=== PATIENT | female | born 1975 | race Hispanic/Latino ===

== ENCOUNTER 2016-05-27 14:40 | Emergency (ER) | payer OTHER ==
[2016-05-27 14:53] VITALS: BMI 19.2
[2016-05-27] MEDS ORDERED: Sodium Chloride 0.9% 1,000 ML IV ONE (15:02)
--- NOTE | 2016-05-27 15:03 | C.PDOC ---
History Of Present Illness Patient is a 40 y/o female that presents to the ED for evaluation of headache associated with nausea, and photophobia since last night. Patient states that her symptoms are similar to her typical migraine headache. Patient states her migraine is usually relieved by Motrin 400mg PO but is unable to tolerate PO today. Otherwise, patient denies any dizziness, weakness, numbness, fever, chills, or any other associated symptoms at this time. Time Seen by Provider: 05/27/16 14:51 Chief Complaint (Nursing): Abdominal Pain History Per: Patient History/Exam Limitations: no limitations Onset/Duration Of Symptoms: Days (1) Current Symptoms Are (Timing): Still Present Quality Of Discomfort: Aching Associated Symptoms: Nausea. denies: Fever, Chills Recent travel outside of the [place]: No Additional History Per: Patient Past Medical History Reviewed: Historical Data, Nursing Documentation, Vital Signs Vital Signs: Last Vital Signs Temp 98.1 F 05/27/16 16:51 Pulse 88 05/27/16 16:51 Resp 20 05/27/16 16:51 BP 106/67 05/27/16 16:51 Pulse Ox 98 05/27/16 16:53 Surgical History: Tonsillectomy, - [facility] Procedures D & C POST DELIVERY (07/10/14) LOW CERVICAL (08/15/12) Family History: States: Unknown Family Hx - Social History Hx Alcohol Use: No Hx Substance Use: No - Immunization History Hx Tetanus Toxoid Vaccination: No Hx Influenza Vaccination: Yes Hx Pneumococcal Vaccination: No Review Of Systems Except As Marked, All Systems Reviewed And Found Negative. Constitutional: Negative for: Fever, Chills Eyes: Positive for: Other (photophobia) Cardiovascular: Negative for: Chest Pain, Palpitations Respiratory: Negative for: Cough, Shortness of Breath Gastrointestinal: Positive for: Nausea. Negative for: Abdominal Pain Musculoskeletal: Negative for: Neck Pain, Back Pain Neurological: Positive for: Headache. Negative for: Weakness, Numbness, Dizziness Physical Exam - Physical Exam Appears: Non-toxic, No Acute Distress Skin: Normal Color, Warm, Dry Head: Atraumatic, Normacephalic Eye(s): bilateral: Other (miosis pupils) Neck: Normal ROM, Supple Chest: Symmetrical Cardiovascular: Rhythm Regular Respiratory: Normal Breath Sounds, No Rales, No Rhonchi, No Wheezing Extremity: Normal ROM, No Deformity Extremity: Bilateral: Atraumatic Neurological/Psych: Oriented x3, Normal Speech, Normal Cognition, Other (neuro intact) ED Course And Treatment - Laboratory Results Result Diagrams: 05/27/16 15:18 05/27/16 15:18 Lab Interpretation: Normal (UDS neg, UA neg.) Urine POC: Negative O2 Sat by Pulse Oximetry: 98 (on RA) Pulse Ox Interpretation: Normal Progress Note: Labs, EKG ordered and reviewed. Patient was treated with IV fluids, Toradol IVP, and Zofran inj. in the ER. On reassessment, patient reports improvement of headache. No neurological deficits. Reevaluation Time: 16:36 Reassessment Condition: Improved Medical Decision Making Medical Decision Making: typical headache, ? migraine type. Disposition Doctor Will See Patient In The: Office Counseled Patient/Family Regarding: Studies Performed, Diagnosis - Disposition Referrals: Abbey Hoffman MD [Staff Provider] - Disposition: HOME/ ROUTINE Disposition Time: 16:36 Condition: GOOD Prescriptions: Ondansetron ODT [Zofran ODT] 1 odt PO BID PRN #6 odt PRN Reason: Nausea/Vomiting Instructions: Acute Headache (ED) - Clinical Impression Clinical Impression: Headache - Scribe Statement The provider has reviewed the documentation as recorded by the Raffy Collins Provider Attestation: All medical record entries made by the Madiibjeff were at my direction and personally dictated by me. I have reviewed the chart and agree that the record accurately reflects my personal performance of the history, physical exam, medical decision making, and the department course for this patient. I have also personally directed, reviewed, and agree with the discharge instructions and disposition.
[2016-05-27 15:29] LABS: BASO % 0.6 % (0.0-2.0); EOS % 0.2 % (0.0-4.0); HEMATOCRIT 38.7 % (34.0-47.0); LYMPH # 0.5 K/uL (1.0-4.3); LYMPH % 9.8 % (20.0-40.0); MEAN CORPUSCULAR HEMOGLOBIN 32.2 pg (27.0-31.0); MEAN CORPUSCULAR HGB CONC 34.6 g/dL (33.0-37.0); MONO # 0.2 K/uL (0.0-0.8); MONO % 2.8 % (0.0-10.0); PLATELET COUNT 218 K/uL (130-400); RED CELL DISTRIBUTION WIDTH 12.6 % (11.5-14.5); WHITE BLOOD COUNT 5.6 K/uL (4.8-10.8)
[2016-05-27] MEDS ORDERED: Sodium Chloride 0.9% 1,000 ML ONE (15:29)
[2016-05-27 15:41] LABS: CHLORIDE 99 mmol/L (98-107); SODIUM 139 mmol/L (132-148)
[2016-05-27 15:42] LABS: POTASSIUM 4.2 mmol/L (3.6-5.2)
[2016-05-27 15:44] LABS: ALB/GLOB RATIO 1.4 (1.0-2.1); ALKALINE PHOSPHATASE 52 U/L (38-126); AST/SGOT 38 U/L (14-36); BILIRUBIN,TOTAL 0.4 mg/dL (0.2-1.3); BLOOD UREA NITROGEN 13 mg/dL (7-17); CARBON DIOXIDE 24 mmol/L (22-30); GFR AFRICAN-AMERICAN > 60; GLUCOSE,RANDOM 105 mg/dL (65-105); TOTAL PROTEIN 7.6 g/dL (6.3-8.3)
[2016-05-27 15:45] LABS: ALT/SGPT 39 U/L (9-52)
[2016-05-27 16:01] LABS: NEUTROPHIL 90 % (50-75); TOTAL CELLS COUNTED 100
[2016-05-27 16:12] LABS: RBC URINE 9 /hpf (0-3); URINE BACTERIA RARE (<OCC); URINE BILIRUBIN NEGATIVE (NEGATIVE); URINE BLOOD NEGATIVE (NEGATIVE); URINE COLOR Yellow (YELLOW); URINE GLUCOSE (UA) NORMAL (Normal); URINE KETONE TRACE mg/dL (NEGATIVE); URINE LEUKOCYTE ESTERASE NEG Leu/uL (Negative); URINE PROTEIN NEGATIVE (NEGATIVE); WBC URINE 1 /hpf (0-5)
[2016-05-27 16:24] LABS: URINE UROBILINOGEN 0.2 mg/dL (0.2-1.0)
[2016-05-27 16:52] VITALS: BP 106/67; PULSE 88; RESP 20; TEMP 98.1; O2SAT 98
== END 2016-05-27 16:52 | disposition home or self-care (01) ==
LOC: C.ER 14:40
DX: R51 Headache (principal)

== ENCOUNTER 2018-02-27 20:58 | Emergency (ER) | payer BC, OTHER ==
[2018-02-27 20:58] VITALS: BMI 19.2
--- NOTE | 2018-02-27 21:13 | C.PDOC ---
History Of Present Illness 42 year old female presents to the ER stating she swallowed a plastic denture. Denies difficulty speaking or difficulty swallowing. Chief Complaint (Nursing): Foreign Body History Per: Patient History/Exam Limitations: no limitations Onset/Duration Of Symptoms: Hrs Current Symptoms Are (Timing): Still Present Recent travel outside of the [place]: No Past Medical History Reviewed: Historical Data, Nursing Documentation, Vital Signs Vital Signs: Last Vital Signs Temp 98 F 02/27/18 21:00 Pulse 99 H 02/27/18 21:00 Resp 16 02/27/18 21:00 BP 128/80 02/27/18 21:00 Pulse Ox 100 02/27/18 21:00 Surgical History: Tonsillectomy, - [facility] Procedures D & C POST DELIVERY (07/10/14) LOW CERVICAL (08/15/12) Family History: States: Unknown Family Hx - Social History Hx Alcohol Use: No Hx Substance Use: No - Immunization History Hx Tetanus Toxoid Vaccination: No Hx Influenza Vaccination: No Hx Pneumococcal Vaccination: No Review Of Systems Constitutional: Negative for: Fever, Chills ENT: Positive for: Other (Swallowed foreign body) Cardiovascular: Negative for: Chest Pain, Palpitations Respiratory: Negative for: Cough, Shortness of Breath Gastrointestinal: Negative for: Nausea, Vomiting Neurological: Negative for: Weakness, Numbness Physical Exam - Physical Exam Appears: Non-toxic, Other (Able to talk without difficulty) Skin: Normal Color, Warm, Dry Head: Atraumatic, Normacephalic Eye(s): bilateral: Normal Inspection Oral Mucosa: Moist, Other (No foreign body or abrasions visualized.) Throat: Normal, Other (Able to swallow without) Neck: Normal, Supple Chest: Symmetrical, No Tenderness Cardiovascular: Rhythm Regular Respiratory: Normal Breath Sounds, No Rales, No Rhonchi, No Wheezing Gastrointestinal/Abdominal: Soft, No Tenderness Neurological/Psych: Oriented x3, Normal Speech ED Course And Treatment O2 Sat by Pulse Oximetry: 100 (Room air) Pulse Ox Interpretation: Normal Progress Note: CXR ordered. Disposition Counseled Patient/Family Regarding: Diagnosis - Disposition Referrals: [facility] [Outside] Disposition: HOME/ ROUTINE Disposition Time: 23:10 Condition: STABLE Instructions: Foreign Body, Swallowed, Adult Forms: [employer] (Sinhala) - POA Present On Arrival: None - Clinical Impression Clinical Impression: H/O swallowed foreign body - Scribe Statement The provider has reviewed the documentation as recorded by the Scribe Souleymane Peralta All medical record entries made by the Scribe were at my direction and personally dictated by me. I have reviewed the chart and agree that the record accurately reflects my personal performance of the history, physical exam, medical decision making, and the department course for this patient. I have also personally directed, reviewed, and agree with the discharge instructions and disposition.
[2018-02-27 23:24] VITALS: BP 110/75; PULSE 73; RESP 18; TEMP 98.3; O2SAT 96
--- NOTE | 2018-02-28 09:42 | RAD ---
Date of service: 02/27/2018 HISTORY: foriegn body COMPARISON: No prior. TECHNIQUE: Chest PA and lateral FINDINGS: LUNGS: No active pulmonary disease. PLEURA: No significant pleural effusion identified. No pneumothorax apparent. CARDIOVASCULAR: No aortic atherosclerotic calcification present. Normal cardiac size. No pulmonary vascular congestion. OSSEOUS STRUCTURES: No significant abnormalities. VISUALIZED UPPER ABDOMEN: Normal. OTHER FINDINGS: None. IMPRESSION: No active disease.
--- NOTE | 2018-02-28 13:48 | CT ---
Date of service: 02/27/2018 PROCEDURE: CT Chest, Abdomen and Pelvis without intravenous contrast HISTORY: FOREIGN BODY IN THROAT. COMPARISON: No prior study available for comparison however correlation made with concurrent chest radiograph TECHNIQUE: Contiguous helical/transaxial sections of the chest abdomen pelvis performed without oral or intravenous contrast material. Additional 2D sagittal and coronal reformats provided. Radiation dose: Total exam DLP = 436.88 mGy-cm. This CT exam was performed using one or more of the following dose reduction techniques: Automated exposure control, adjustment of the mA and/or kV according to patient size, and/or use of iterative reconstruction technique. FINDINGS: CT CHEST WITHOUT CONTRAST: LUNGS: No acute consolidation. No mass or nodule the. MEDIASTINUM: Heart size within range of normal. No significant pericardial effusion. Ascending thoracic aorta measures approximately 2.7 cm. Descending thoracic aorta measures approximately 1.9 cm. No significant atherosclerotic plaque changes. Pulmonary trunk measures approximately 2.0 cm. Few small nonspecific mediastinal lymph nodes are present right. Evaluation for hilar adenopathy is limited due to the lack of circulating intravenous contrast material. Iliac trachea is midline and patent with no large central endoluminal lesions. There is a small hiatal hernia with slight wall thickening of the distal esophagus likely due to protrusion gastric mucosa. LYMPH NODES: As above. Evaluation for hilar adenopathy is limited due to the lack of circulating intravenous contrast material. There are a few small bilateral nonspecific axillary lymph nodes PLEURA: Unremarkable. No pneumothorax. No pleural fluid. BONES: Osseous structures appear intact. Minimal degenerative spondylosis seen at few thoracic levels.. No acute compression fracture the retropulsed fragments. OTHER FINDINGS: Apart from of in situ bilateral breast prostheses, no radiopaque foreign bodies are identified... CT ABDOMEN AND PELVIS: LIVER: The unenhanced liver exhibits normal size. No evidence of hepatic masses or collections seen on this noncontrast exam. GALLBLADDER AND BILE DUCTS: Gallbladder is incompletely distended however no evidence of intraluminal gallbladder calculi. PANCREAS: The unenhanced pancreas appears grossly unremarkable so far as can be seen. SPLEEN: The spleen exhibits normal size and attenuation pattern without mass collection or calcification. ADRENALS: There are no adrenal lesions.. KIDNEYS AND URETERS: Kidneys demonstrate relatively symmetric size. No evidence of nephrolithiasis or hydronephrosis.. VASCULATURE: No significant the aortic atherosclerotic calcification or mural plaque present. Unremarkable. No aortic aneurysm. BOWEL: Evaluation of the bowel is somewhat limited due to the lack of oral contrast material.. APPENDIX: Appendix is not seen with complete certainty on this study however no obvious inflammatory changes right lower quadrant of the abdomen.. PERITONEUM: Unremarkable. No free fluid. No free air. There is a small fat containing umbilical hernia LYMPH NODES: Unremarkable. No enlarged lymph nodes. BLADDER: Unremarkable. REPRODUCTIVE: The uterus is enlarged- bulky and lobulated in appearance consistent with uterine fibroids.. Several discrete partially exophytic fibroids, a few of which exhibit calcifications are also noted. There is a left-sided adnexal stent measured measures approximately 2.6 x 2.4 cm. BONES: Normal stature lumbar vertebral bodies intact. Some minimal broad-based disc bulging changes seen at the L4-L5 and L5-S1 and probably to a lesser degree L3-L4 levels. OTHER FINDINGS: None. IMPRESSION: No radiopaque foreign bodies apart from in situ bilateral breast implants. Enlarged myomatous uterus. Left adnexal cyst.
== END 2018-02-27 23:26 | disposition home or self-care (01) ==
LOC: C.ER 20:58
DX: T18.9XXA Foreign body of alimentary tract, part unspecified, initial encounter (principal); X58.XXXA Exposure to other specified factors, initial encounter

== ENCOUNTER 2018-03-01 06:41 | Day surgery (SDC) | payer BC ==
[2018-03-01] MEDS ORDERED: Propofol 10 mg/ml Inj (20 ML) ONE (08:15)
[2018-03-01] MEDS ORDERED: Lactated Ringer's 1,000 ML IV ONE (09:05)
[2018-03-01 09:53] VITALS: TEMP 97.5
[2018-03-01 10:22] VITALS: O2SAT 100
[2018-03-01 13:10] VITALS: BP 104/67; PULSE 69; RESP 12
== END 2018-03-01 12:43 | disposition home or self-care (01) ==
LOC: C.ENDO 06:41
PROVIDERS: ATTEND Internal Medicine Gastroenterology
DX: R13.10 Dysphagia, unspecified (principal); K29.70 Gastritis, unspecified, without bleeding
CPT/HCPCS: 43239; 84703; 88305; J2704; J7120